=== PATIENT | male | born 1970 | race Hispanic/Latino ===

== ENCOUNTER 2017-03-11 11:54 | Inpatient (IN) | payer OTHER ==
[~2017-03-11] VITALS: Ht 177.8 cm; Wt 88.9 kg
[2017-03-11 12:22] VITALS: BP 178/106; PULSE 105; RESP 20; O2SAT 98
[2017-03-11] MEDS ORDERED: MetoCLOpramide 5 mg/mL 2 mL Inj IVPUSH PRN (12:55)
[2017-03-11] MEDS ORDERED: Ondansetron 2 mg/mL 2 mL Inj IVPUSH PRN (12:55)
[2017-03-11] MEDS ORDERED: HYDROmorphone 1 mg/mL Inj IVPUSH PRN (12:55)
[2017-03-11] MEDS: Dextrose 5% Lactated Ringer's 1,000 ML IV SCH (13:31)
[2017-03-11 13:32] LABS: BASOPHILS % (AUTO) 0.5 % (0-3); EOSINOPHILS % (AUTO) 2.2 % (0-5); MONOCYTES % (AUTO) 10.7 % (4-12); Mean Corpuscular Hemoglobin 30.4 pg (27.0-35.0); Mean Corpuscular Volume 87.4 fL (81-100); NEUTROPHILS % (AUTO) 64.8 % (40-74); Platelet Count 228 bil/L (150-400)
[2017-03-11] MEDS: Sodium Chloride LOK Flush 10 mL Syringe IVFLUSH SCH (14:09)
--- NOTE | 2017-03-11 15:54 | HP ---
[address] [address] HISTORY AND PHYSICAL PATIENT: REJI BEYER : 1970 MR#: [id number] ADMIT: 03/11/2017 JOB ID: [id number] DATE OF SERVICE: 03/11/2017 CHIEF COMPLAINT: Fevers. HISTORY OF PRESENT ILLNESS: The patient is a 46-year-old man who was admitted directly to my service from urgent care with a description of fevers, rigors, and an impacted gallstone without any laboratory abnormalities. On further detail, the scenario is much more ambiguous. The patient has presented to the [facility] at least two different times over the past week with various complaints, but his main complaint being fevers and rigors. He also has complained of nausea but that has resolved. He has not had vomiting. He has not complained of abdominal pain through any part of this illness. His main complaint today is fevers and severe headaches. Through the course of his evaluation at [facility], he had multiple rounds of labs, at which time, his white blood cell count and liver function tests have been normal the whole time. He did have a CT scan of the abdomen and pelvis on March 09 to rule out diverticulitis. His colon looked normal. It did show incidental finding of a large calcified gallstone in the gallbladder neck measuring 3.8 x 4.8 cm. There was no gallbladder wall thickening, no pericholecystic fluid. The bile in the fundus of the gallbladder had elevated Hounsfield units, generally thought to be associated with chronic obstruction of the gallbladder. The bile ducts were not dilated. The liver looked normal. The appendix was normal and no other signs of fevers were seen. Yesterday, after returning to [facility], an ultrasound of the abdomen was obtained and he was again sent home. The ultrasound showed the liver to be diffusely echogenic. The gallbladder had a probable impacted gallstone measuring 2.4 cm with diffuse gallbladder sludge, but again no gallbladder wall thickening, no biliary ductal dilation, negative sonographic Calix sign. Again, today his main complaints are fever and headache. PAST MEDICAL HISTORY: None. PAST SURGICAL HISTORY: None. MEDICATIONS: None. ALLERGIES: No known drug allergies. SOCIAL HISTORY: He works as a legislative advocate. He does not smoke cigarettes. He denies alcohol and illicit drug use. FAMILY HISTORY: Noncontributory. Specifically, no gallbladder disease. REVIEW OF SYSTEMS: A 10-point review of systems is negative except as described in history and present illness. There is no history of unplanned weight loss, no jaundice. PHYSICAL EXAMINATION: Body mass index is not recorded. Temperature 37.1, pulse 105, blood pressure 178/106. Saturation 98% on room air. General: He is resting in bed in no acute distress. HEENT: Sclerae are anicteric. Mucous membranes are moist. Neck: No lymphadenopathy. No jugular venous distention. Chest is clear. Heart: Regular rate and rhythm. No murmurs. Abdomen is completely soft, nontender, nondistended. There are no hernias. There are no palpable masses. There is no Calix's sign. Extremities: No edema. Neuro: No deficits. Psych: Affect is appropriate. LABORATORIES: White blood cell count 8.5, hematocrit 40.8, platelets 228. Differential is normal. Creatinine 0.79. Glucose 112. Bilirubin 0.6. AST 11, ALT 15, alkaline phosphatase 32, albumin 4.0. IMAGING: As described in history of present illness. ASSESSMENT AND PLAN: A 46-year-old man with one week of fevers, alternating rigors, headache, and an incidental finding of a large gallstone without evidence of cholecystitis. This is a confusing picture and I do think that based on the size of his gallstone alone, cholecystectomy might be in his future at some point, but there is no evidence as of now that he has cholecystitis. It seems unlikely that a gallbladder etiology is the underlying cause of all of his symptoms when he has absolutely no abdominal pain, has normal white count, and has normal LFTs. In addition, my service was performed before this had been completely elucidated. I have consulted the hospitalist service to initiate further workup for other sources of fevers, headache, rigors. Antibiotics are not being offered. Consideration of future cholecystectomy will continue.
[2017-03-11] MEDS ORDERED: IBUP200C11 PO (16:00)
[2017-03-11] MEDS ORDERED: ACET325C PO (16:00)
[2017-03-11] MEDS ORDERED: Lactated Ringer's 1,000 ML IV ONE (16:35)
--- NOTE | 2017-03-11 16:35 | PCM.HPANE ---
Patient Data Surgeon Admitting Provider:Du Villa MD Attending Provider:Du Villa MD Primary Care Physician:Tor Tyler MD Other Provider: Reason for Visit Cholecystitis Ht/WT & BMI Body Mass Index Allergies Coded Allergies: No Known Drug Allergies (Verified Allergy, Unknown, 03/11/17) Medications Reported Medications Ibuprofen (Advil)200 Mg [id number] Mg PO QID PRN For Pain 03/11/17 Acetaminophen 325 Mg [id number] Mg PO Q4H PRN For Pain 03/11/17 History Denture Type: None Stop/Bang Risk Assessment Category Category 1A: Patient has history of documented sleep apnea, and HAS NOT received any narcotic, sedative or anesthesia administration during this stay. Category 1B: Patient has history of documented sleep apnea, and HAS received any narcotic , sedative or anesthesia administration during this stay Category 2: Patient has SUSPECTED Obstructive Sleep Apnea, and HAS received any narcotic , sedative or anesthesia administration during this stay. Category 3: Patient has SUSPECTED Obstructive Sleep Apnea and HAS NOT received narcotic, sedative or anesthesia administration during this stay. Category 4: Outpatient in Procedural Areas with known sleep apnea or who screen positive for High Risk via the STOP/BANG questionnaire. Exam Exam Vital Signs Vital Signs Date Time Temp Pulse Resp B/P Pulse Ox O2 Delivery O2 Flow Rate FiO2 03/11/17 12:22 37.1 105 20 178/106 98 Room Air Meds/Labs/Diagnostics Admission Meds Current Medications Dextrose/Lactated Ringer's (D5 Lactated Ringer's) 1,000 ml @ 100 mls/hr Q10H IV Last administered on 03/11/17t 13:31; Start 03/11/17 at 12:53 Labs Test 03/11/17 13:20 White Blood Count 8.5th/mm3 (3.8-10.1) Red Blood Count 4.67mil/mm3 (4.40-5.80) Hemoglobin 14.2g/dL (13.8-17.2) Hematocrit 40.8% (41.0-50.0) Mean Corpuscular Volume 87.4fL (81-100) Mean Corpuscular Hemoglobin 30.4pg (27.0-35.0) Mean Corpuscular Hemoglobin Concent 34.8% (32.0-37.0) Red Cell Distribution Width 12.3% (12.3-15.4) Platelet Count 228bil/L (150-400) Neutrophils (%) (Auto) 64.8% (40-74) Lymphocytes (%) (Auto) 21.6% (14-46) Monocytes (%) (Auto) 10.7% (4-12) Eosinophils (%) (Auto) 2.2% (0-5) Basophils (%) (Auto) 0.5% (0-3) Sodium Level 135mEq/L (134-144) Potassium Level 4.1mEq/L (3.5-5.2) Chloride Level 98mEq/L (97-108) Carbon Dioxide Level 24mmol/L (18-29) Blood Urea Nitrogen 12mg/dL (6-24) Creatinine 0.79mg/dL (0.76-1.27) Estimat Glomerular Filtration Rate 113mL/min (>59) Glucose Level 112mg/dL (60-99) Calcium Level 7.9mg/dL (8.5-10.1) Total Bilirubin 0.6mg/dL (0.0-1.2) Aspartate Amino Transf (AST/SGOT) 11U/L (0-50) Alanine Aminotransferase (ALT/SGPT) 15U/L (0-44) Alkaline Phosphatase 32U/L (25-150) Total Protein 6.4g/dL (6.4-8.4) Albumin 4.0g/dL (3.4-5.0) Plan Impression Patient chart reviewed, patient interviewed and anesthestic plan with risks, benefits, and alternatives discussed, and informed consent obtained. Teodoro Mansfield MD Mar 11, 2017 16:35
[2017-03-11] MEDS: HYDROmorphone 1 mg/mL Inj IVPUSH PRN ×4 (16:41→23:22)
--- NOTE | 2017-03-11 17:21 | NUR ---
admission pt arrived from urgent care via w/c with present. Able to get into bed independently. he c/o severe HERNANDEZ, 03/10. medicated with IV dilaudid for decrease to 11/08. no c/o abd pain. Pt afebrile but he has chills. continues to ask for thermostat to be increased and warm blankets. Pt states he is unable to urinate, he states he drinks "7 bottles of water a day and I only pee like 1 bottle." bladder scanned this afternoon and only 65ml present on scan. Pt NPO since arrival, states water only this morning and last food intake yesterday. records obtained from [facility]ai in paper chart.
--- NOTE | 2017-03-11 18:47 | PCM.CHPMED ---
Subjective Date of Service: Mar 11, 2017 Provider requesting consult: Du Villa MD Primary Physician: Admitting Physician: Du Villa MD Primary Care Physician: Tor Tyler MD Attending Physician: Du Villa MD Chief Complaint: Chief Complaint: Headache, difficulty urinating, chills History of Present Illness: Patient is a 46 year old [place] speaking male originally from [place] generally healthy and without any known past medical history and on no medications who was admitted earlier directly to surgical service from urgent care with "description of fevers, rigors, and an impacted gallstone without any laboratory abnormalities." However, patient's chief complaint is a severe headache that has been ongoing for the past almost one week associated with chills, generalized malaise, and significant dysuria. He also reports occasional subjective fever, and 2 episodes of nausea and vomiting earlier in the week. He also had 2 episodes of severe acute abdominal pain which prompted the abdominal CT as outpatient which was notable for "chronically obstructed gallbladder containing a 3.8 x 4.8 impacted stone at the gallbladder neck" that lead to patient being admitted to surgery earlier today. However patient denies any ongoing abdominal pain and as noted his chief complaint is the headache, malaise and difficulty with initiating urination and then severe pain and burning when he does urinate. On further questioning he also endorses new onset of blurred vision as well as change in his sense of smell and taste over the past few days. He denies any photophobia but does complain of some neck pain. He otherwise denies any numbness, tingling, or focal weakness. He denies any recent travel (last travel to [place] was in July 2016) and denies any sick contacts. He is and denies any sexual encounters other than his . He further denies any drug use. 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 He also reports "dizziness" as well as lightheadedness even when laying down but has not lost consciousness. Review of Systems: Constitutional: Negative, except as otherwise mentioned in the history above. Ophthalmologic: Negative, except as otherwise mentioned in the history above. Cardiovascular: Negative, except as otherwise mentioned in the history above. Respiratory: Negative, except as otherwise mentioned in the history above. Gastrointestinal: Negative, except as otherwise mentioned in the history above. Genitourinary: Negative, except as otherwise mentioned in the history above. Musculoskeletal: Negative, except as otherwise mentioned in the history above. Neurological: Negative, except as otherwise mentioned in the history above. Psychiatric: Negative, except as otherwise mentioned in the history above. Hematologic/Lymphatic: Negative, except as otherwise mentioned in the history above. Allergic/Immunologic: Negative, except as otherwise mentioned in the history above. Exam Vital Signs & I/O Vital Sign- Last 8 Hours Date Time Temp Pulse Resp B/P Pulse Ox O2 Delivery O2 Flow Rate FiO2 03/11/17 12:22 37.1 105 20 178/106 98 Room Air Lab & Micro Results Laboratory Tests Test 03/11/17 13:20 White Blood Count 8.5th/mm3 (3.8-10.1) Red Blood Count 4.67mil/mm3 (4.40-5.80) Hemoglobin 14.2g/dL (13.8-17.2) Hematocrit 40.8% (41.0-50.0) Mean Corpuscular Volume 87.4fL (81-100) Mean Corpuscular Hemoglobin 30.4pg (27.0-35.0) Mean Corpuscular Hemoglobin Concent 34.8% (32.0-37.0) Red Cell Distribution Width 12.3% (12.3-15.4) Platelet Count 228bil/L (150-400) Neutrophils (%) (Auto) 64.8% (40-74) Lymphocytes (%) (Auto) 21.6% (14-46) Monocytes (%) (Auto) 10.7% (4-12) Eosinophils (%) (Auto) 2.2% (0-5) Basophils (%) (Auto) 0.5% (0-3) Sodium Level 135mEq/L (134-144) Potassium Level 4.1mEq/L (3.5-5.2) Chloride Level 98mEq/L (97-108) Carbon Dioxide Level 24mmol/L (18-29) Blood Urea Nitrogen 12mg/dL (6-24) Creatinine 0.79mg/dL (0.76-1.27) Estimat Glomerular Filtration Rate 113mL/min (>59) Glucose Level 112mg/dL (60-99) Calcium Level 7.9mg/dL (8.5-10.1) Total Bilirubin 0.6mg/dL (0.0-1.2) Aspartate Amino Transf (AST/SGOT) 11U/L (0-50) Alanine Aminotransferase (ALT/SGPT) 15U/L (0-44) Alkaline Phosphatase 32U/L (25-150) Total Protein 6.4g/dL (6.4-8.4) Albumin 4.0g/dL (3.4-5.0) Result Diagram: 03/11/17 1320 03/11/17 1320 PMH Past Medical History Denies any past medical history Hx Any Other Health Problems?: NoHx Diabetes: No Surgical History Denies any Home Medications Denies any regular home meds but has been taking Tylenol and Ibuprofen at home in past days for his ongoing symptoms. Allergies: Coded Allergies: No Known Drug Allergies (Verified Allergy, Unknown, 03/11/17) Family History Family History Both parents with diabetes Social History Hx Alcohol Use: Yes (says drinks from December- only and does not drink otherwise. His last drink was 2 weeks ago.)Hx Substance Use: NoHx Tobacco Use : No Smoking Status: Never Smoker Living Arrangement: with Family Exam Vital Signs Vital Sign - Last Date Time Temp Pulse Resp B/P Pulse Ox O2 Delivery O2 Flow Rate FiO2 03/11/17 12:22 37.1 105 20 178/106 98 Room Air General: Alert, Oriented X3, Cooperative, No Acute Distress Head: Normal Eyes: PERRLA, EOMI, Scleral Anicteric Nose: Mucous Membr Moist/[place] Mouth: Mucous Membr Moist/[place] Neck: Other (seems supple although may have mild rigidity due to headache/pain) Chest & Lungs: Chest Wall Normal, Clear to auscultation & percussion Cardiovascular: Regular Rate/Rhythm Pulses: NL carotid, radial, femoral, DP, PT Abdomen: Tender (tender at lower abdomen), Non-distended, Normoactive bowel tones, Soft Musculoskeletal: Normal Range of Motion Extremities: No cyanosis/clubbing/edma bilat Neurological: Grossly Neurologically Intact, Cranial Nerves 2-12 Intact, Normal Speech, Strength Normal 4/4 ext, Sensation Intact Lymphatic: Other Lymph Nodes (no significant lymphadenopathy) Additional Information: Psych: Calm, appropriate Lab and Diagnostics Result Diagram: 03/11/17 1320 03/11/17 1320 X-Rays, CTs and MRIs Date of Service: 03/09/17 1407 PROCEDURE: CT ABDOMEN AND PELVIS WITH CONTRAST ([id number]) IMPRESSION: Recommend surgical consultation for evaluation of what appears to be a chronically obstructed gallbladder containing a 3.8 x 4.8 impacted stone at the gallbladder neck. As noted, the bile within the gallbladder near the fundus is abnormally elevated in radiodensity at 55 Hounsfield units, indicating chronic obstruction as the likely cause. Elsewhere no source of fever found, normal appendix identified. Please note that a stone of this large size within the gallbladder neck and slowly erodes through the adjacent structures and be a source of "gallstone ileus". There is no suspicion for impending erosion from the gallbladder lumen into adjacent structures, however. Dictated by: Semaj Manrique M.D. on 03/09/2017 at 16:44 Approved by: Semaj Manrique M.D. on 03/09/2017 at 16:47 Date of Service: 03/09/17 1408 PROCEDURE: X-RAY CHEST, TWO VIEWS ([id number]) IMPRESSION: No acute pulmonary process. Dictated by: Christy Dillard M.D. on 03/09/2017 at 13:39 Approved by: Christy Dillard M.D. on 03/09/2017 at 13:39 Date of Service: 03/10/17 1259 PROCEDURE: US ABDOMEN, LIMITED ([id number]) IMPRESSION: 1. Increased hepatic echogenicity noted likely related to fatty infiltration of the liver but other sources of hepatocellular disease cannot be excluded. Recommend clinical correlation. 2. Cholelithiasis present with probable gallstone impaction within the gallbladder neck or cystic duct and there is no wall thickening or sonographic Calix sign. Dictated by: Robert White [facility] Interpreted: Lake Patel MD on 03/10/2017 at 15:31 Approved by: Lake Patel M.D. on 03/10/2017 at 20:41 Assessment & Plan Assessment 46 year male originally from [place] generally healthy and without any known past medical history and on no medications who was admitted earlier directly to surgical service from urgent care with "description of fevers, rigors, and an impacted gallstone without any laboratory abnormalities." However, patient's chief complaint is a severe headache that has been ongoing for the past almost one week associated with chills, generalized malaise, and significant dysuria. # Acute severe headache. Present on admission - Even though neuro exam is fairly non-focal he does report subjective blurry vision and change in smell and taste as well as dizziness - I will order a STAT MRI of the brain to rule out both hemorrhagic and ischemic stroke - If MRI turns out negative I will strongly recommend LP ANUP to rule out meningitis. If he does have meningitis I suspect it would be aseptic given that his symptoms have been ongoing for almost a week and he otherwise seems fairly non-toxic, afebrile, and without leukocytosis. That is why I'm holding off on initiating Abx immediately. However, should he spike a fever or have any clinical deterioration there should be little hesitation to initiate empiric Abx - Check 2 sets of blood culture - Check procalcitonin - Check PTT/PT - If above workup negative, ? if neuro symptoms due to chemical exposure from his job. Will followup # Acute dysuria present on admission. - Per nursing postvoid residual was less than 100cc - Check UA now. pt instructed to let the nurse know as soon as he has the urge to urinate # Incidental finding of a large gallstone without evidence of cholecystitis on blood work or exam - Will defer to the expertise of primary surgical team regarding need for further intervention vs followup Thank you very much for allowing us to participate in this patient's care. The hospitalist team will continue to follow this patient closely with you and will be available for any additional questions/concerns. Problems: VTE Prophylaxis: SCDs Resuscitation Status: CPR: Attempt Resuscitation (discussed and verified with patient) Time spent 65 min Gregorio Orta Mar 11, 2017 18:47
[2017-03-11 19:19] VITALS: BP 153/90; PULSE 103; RESP 18; O2SAT 96
[2017-03-11 19:39] LABS: INR 1.05 ratio
[2017-03-11 20:01] LABS: APPEARANCE,URINE CLEAR (CLEAR,HAZY); COLOR,URINE YELLOW (YELLOW); OCCULT BLOOD,URINE NEGATIVE (NEGATIVE); PH,URINE 6.5 (5.0-8.0); UROBILINOGEN,URINE NORMAL (NORMAL)
--- NOTE | 2017-03-11 21:16 | NUR ---
PAIN/NASAL CONGESTION: Pt. anxious c/o nasal congestion and pain 02/07, requesting Afrin nasal spray and pain med. also requesting apple juice, explained he is NPO for now. Paged MD to request Afrin. Given PO Tylenol as pt. already was given IV Dilaudid per previous RN, later on given IV Dilaudid and Afrin nasal spray for c/o nasal congestion. 2116 to MRI via w/c. Pt. reported pain at 10/08.
[2017-03-11 23:16] VITALS: BP 136/89; PULSE 89; RESP 18; O2SAT 96
--- NOTE | 2017-03-11 23:23 | DRSVH ---
PROCEDURE: MRI STROKE PROTOCOL ([id number]) Pre- and post-contrast brain MRI, non-contrast brain MR angiogram, pre- and postcontrast neck MR gal ogram INDICATIONS: headache, blurred vision TECHNIQUE: Brain: Noncontrast axial T1 spin echo, axial T2 fast spin echo, sagittal and axial FLAIR, coronal T2 fast spin echo, axial gradient echo, axial diffusion and ADC through the brain. After the administr ation of contrast, axial 3D VIBE of the cranial vasculature and brain. Brain MRA: Non-contrast 3-D time of flight MR angiogram, with multiple ttxyozt-rreblgsbu-xkuafqlsac (MIP) reformats performed. Neck MRA: Axial and sagittal TruFISP through the neck. Coronal dynamic MR angiogram during administ ration of contrast in the arterial and venous phases, with 3-dimenstional iszlbna-oahxglsct-iwgjqgszz n (MIP) reformats constructed from subtraction images. COMPARISON: None. FINDINGS: Image quality: Excellent. BRAIN: CSF spaces: Ventricles are normal in size and shape. Basal cisterns are patent. No extra-axial flu id collections. Brain: No intracranial hemorrhage, mass, or mass effect. Serra-white matter interface is normal. Di ffusion weighted images demonstrate no acute infarcts. Brainstem appears normal. Normal intravascul ar flow voids are present. No abnormal intracranial enhancement. Skull and face: Calvarial marrow signal is normal. Orbits appear normal. Sinuses: Sinuses and mastoids are clear. BRAIN MR ANGIOGRAM: Anterior circulation: Intracranial internal carotid arteries are normal in size and enhancement. Th e flow within the paired anterior cerebral arteries is normal and symmetric. The flow within the mid dle cerebral arteries is normal and symmetric. The anterior communicating artery is patent. No sten oses, occlusions, or aneurysms. Posterior circulation: The visualized portions of the vertebral arteries are patent and join to form a normal appearing basilar artery. The flow within the posterior cerebral arteries is normal and sy mmetric. No stenoses, occlusions, or aneurysms. NECK MR ANGIOGRAM: Carotids: Great vessels demonstrate a conventional anatomy as they arise from the aortic arch. The origins of the common carotid arteries appear patent. The calibers and courses of both common caroti d arteries are normal. The bifurcation regions appear normal bilaterally. The carotid bulbs are wid tim patent. The internal carotid arteries demonstrate normal course and caliber. Posterior circulation: The origins of the vertebral arteries appear patent. More superior portions of both vertebral arteries demonstrate normal course and caliber, and join to form a normal appearing basilar artery. Miscellaneous: Subclavian arteries appear patent. Pre-contrast images through the neck demonstrate degenerative disc disease at C3-C4 and C6-C7 with mild associated spinal canal narrowing. IMPRESSION: BRAIN MRI: 1. No evidence of infarct or other acute intracranial abnormality. BRAIN MR ANGIOGRAM: 1. No high-grade stenosis or occlusion of the central intracranial arteries. NECK MR ANGIOGRAM: 1. No high-grade stenosis or occlusion of the head and neck arteries. The carotid bulbs are widely patent. The estimate of stenosis included in the report of the imaging study was calculated using the NASCET method Dictated by: Crhis Jiménez M.D. on 03/11/2017 at 23:22 Approved by: Chris Jiménez M.D. on 03/11/2017 at 23:22
[2017-03-12] MEDS: Sodium Chloride LOK Flush 10 mL Syringe IVFLUSH SCH ×3 (00:30→16:30)
[2017-03-12] MEDS: HYDROmorphone 1 mg/mL Inj IVPUSH PRN ×6 (03:20→21:50)
[2017-03-12] MEDS: Dextrose 5% Lactated Ringer's 1,000 ML IV SCH ×2 (04:48→16:17)
--- NOTE | 2017-03-12 04:54 | NUR ---
DIFFICULTY VOIDING: Pt. states he has trouble initiating void. States "I am able to void but it is hard, it takes me a while to void and then I void only small amounts". Pt. has been up about 3 times tonight to void 250,450.400 ml bert. [facility] Pt. placed on PAINT GRINDER as he is getting Dilaudid IVP frequently for H/A. On going care. Addendum: 03/12/17 at 0501 by JOVANNA CASTILLO RN (NELLY) ADDENDUM: Pt. states his last BM was a week ago because he hasn't been eating anything.
[2017-03-12 06:46] LABS: BASOPHILS % (AUTO) 0.3 % (0-3); EOSINOPHILS % (AUTO) 1.9 % (0-5); MONOCYTES % (AUTO) 10.3 % (4-12); NEUTROPHILS % (AUTO) 63.4 % (40-74); Platelet Count 235 bil/L (150-400)
--- NOTE | 2017-03-12 08:31 | PCM.PNSURG ---
Subjective Visit Information: Reason for Visit Cholecystitis Surgery/Surgery Date Post-Op Day # Date of Admission: Mar 11, 2017 at 11:54 Hospital Day # Subjective: Still complains of headaches. WBC to 12. MR normal yesterday. No abdominal pain or tenderness. Objective Intake and Output- Last 8 Hour 03/12/17 Cumulative From/Thru 07:00 03/11/17 19:20 - 03/12/17 06:39 Intake Total 800 ml 800 ml Output Total 1100 ml 1450 ml Balance -300 ml -650 ml Intake Oral 0 ml 0 ml IV Total 800 ml 800 ml Output Urine Total 1100 ml 1450 ml # Bowel Movements 0 0 General: Alert, Oriented X3, Cooperative, No Acute Distress Abdomen: Soft, Non-tender, Non-distended Result Diagram: 03/12/1761803/12/17618 Assessment & Plan Impression 46yom with headaches and rigors and incidentally seen large gallstone. Problems: Plan I agree with my partner's assessment that this pt does not have cholecystitis. The cause for his symptoms should be thoroughly pursued, as Dr. Orta is already doing. Cholecystectomy may be considered on an elective outpatient basis. He should be seen in the general surgery clinic by a surgeon after discharge. Care will be transferred to the hospitalist team. This was discussed with Dr. Orta. VTE Prophylaxis: SCDs Resuscitation Status: CPR: Attempt Resuscitation (discussed and verified with patient) Beti Matthews MD Mar 12, 2017 08:31
--- NOTE | 2017-03-12 13:51 | PCM.PROC ---
Procedure Note Date of Service: Mar 12, 2017 Pre Procedure Diagnosis: Acute severe headache with questionable meningitis Post Procedure Diagnosis: Acute severe headache with questionable meningitis Procedure: Lumbar puncture Provider and Arborist Representative: Dr. Art Troncoso Indication for Procedure: Severe headache possibly related to meningitis Findings: No findings as attempt was unsuccessful. Procedural Analgesia: The area was numbed appropriately 5cc's of with 2% lidocaine Procedure Details: Consent was obtained from the patient. Patient was placed in a sitting position and asked to lean forward over a table which was provided. The patient' s back was prepped with betadine. The area between L4/5 was marked and then was cleaned and draped using sterile technique. Lidocaine was administered subdermally in the area between L4 and L5. Using landmarks a 22-gauge spinal needle was inserted in the L4/L5 interspace. The stylet was removed however no CSF was obtained. An attempt was made to replace the needle several times however no CSF was produced. Specimen: None Post Procedure Plan: Patient will have LP conducted under fluoroscopy. Attending Statement The patient was seen and examined together with Dr. Levy on 03/12/17 and I have added additional information to the note above. Pavan Levy DO Mar 12, 2017 13:51 Glory Cordova DO Mar 12, 2017 16:31
[2017-03-12 14:38] LABS: BASOPHILS % (AUTO) 0.2 % (0-3); EOSINOPHILS % (AUTO) 2.3 % (0-5); MONOCYTES % (AUTO) 11.1 % (4-12); Mean Corpuscular Hemoglobin 30.7 pg (27.0-35.0); Mean Corpuscular Volume 87.2 fL (81-100); NEUTROPHILS % (AUTO) 66.2 % (40-74); Platelet Count 227 bil/L (150-400)
--- NOTE | 2017-03-12 14:45 | NUR ---
NURSING DAYS 7-7 Patient underwent unsuccessful lumbar puncture today to try to differentiate viral vs bacterial meningitis. Plan now is to do radiology gilded lumber puncture. Family anxious about unknown results prognosis, care notes provided on meningitis. Pain controlled with IVP Dilaudid and ice to neck. Patient starting to c/o abdomen pain, potential gall stone. Patient sleeping quietly in bed at this time. Addendum: 03/12/17 at 1523 by SHADE FARRAR RN Patient left at 1530 to undergo RAD lumbar puncture. Droplet precautions and consent with patient. Addendum: 03/12/17 at 1828 by SHADE FARRAR RN Patient c/o abdomen pain after eating, states "this is the way it was for 4-5 days before entering hospital"
--- NOTE | 2017-03-12 16:23 | DRSVH ---
PROCEDURE: X-RAY LUMBAR PUNCTURE ([id number]) INDICATIONS: headache, neck pain, fever/chills TECHNIQUE: The indications, alternatives, benefits, risks, and complications were explained to the patient. Sakina latoya informed consent was obtained and placed in the chart. The patient was placed in a prone positi on on the fluoroscopy table, and a level was chosen for percutaneous access under fluoroscopic guidan ce. The site was prepped and draped in a sterile fashion. After local anaesthetic, a spinal needle was then used to enter the intrathecal space, with return of cerebrospinal fluid. After obtaining sufficient fluid, the needle was then withdrawn, and a bandage applied to the punctur e site. FINDINGS: Puncture level: L4-5 Needle: Spinal needle. Opening pressure: Not requested. CSF volume and description: 7 CC clear Medications: 1% lidocaine for anaesthesia. Complications: None Laboratories: As ordered by referring clinician. IMPRESSION: Successful fluoroscopically guided lumbar puncture. Dictated by: Colin Conner M.D. on 03/12/2017 at 16:22 Approved by: Colin Conner M.D. on 03/12/2017 at 16:22
[2017-03-12 16:31] VITALS: BP 135/83; PULSE 88; RESP 20; O2SAT 97
[2017-03-12] MEDS ORDERED: 0.9% Sodium Chloride 1,000 ML IV ONE (17:45)
[2017-03-12 17:47] LABS: APPEARANCE,CSF CLEAR (CLEAR); COLOR,CSF COLORLESS (COLORLESS); WHITE BLOOD CELL,CSF 625 /mm3 (0-5)
--- NOTE | 2017-03-12 17:53 | PCM.PNMED ---
Subjective Date of Service Mar 12, 2017 Subjective Reports continued headache. Ongoing dysuria. Denies any other new issues/ complaints. Exam Vital Signs Vital Sign - Last Date Time Temp Pulse Resp B/P Pulse Ox O2 Delivery O2 Flow Rate FiO2 03/12/17 16:31 36.7 88 20 135/83 97 Room Air Intake and Output 03/11/17 03/11/17 03/12/17 Cumulative From/Thru 15:00 23:00 07:00 03/11/17 19:20 - 03/12/17 06:39 Intake Total 0 ml 800 ml 800 ml Output Total 350 ml 1100 ml 1450 ml Balance -350 ml -300 ml -650 ml Intake Oral 0 ml 0 ml 0 ml IV Total 800 ml 800 ml Output Urine Total 350 ml 1100 ml 1450 ml # Bowel Movements 0 0 Exam General: Alert, Oriented x 3, Cooperative, No Acute Distress Head: Normal Eyes: PERRLA, EOMI, Scleral Anicteric Nose: Mucous Membr Moist/[place] Mouth: Mucous Membr Moist/[place] Neck: Other (seems supple although may have mild rigidity due to headache/pain) Chest & Lungs: Chest Wall Normal, Clear to auscultation bilat Cardiovascular: Regular Rate/Rhythm Pulses: NL DP, PT Abdomen: Tender (tender at lower abdomen), Non-distended, Normoactive bowel tones, Soft Musculoskeletal: Normal Range of Motion Extremities: No cyanosis/clubbing/edema bilat Neurological: Grossly Neurologically Intact, Cranial Nerves 2-12 Intact, Normal Speech, Strength Normal 4/4 ext Psych: Calm, appropriate IVs and Medications Medications Reviewed: Medications were reviewed in detail Lab and Diagnostics Result Diagram: 03/12/17 1413 03/12/17 0619 X-Rays, CTs and MRIs Date of Service: 03/11/17 1833 PROCEDURE: MRI STROKE PROTOCOL ([id number]) Pre- and post-contrast brain MRI, non-contrast brain MR angiogram, pre- and postcontrast neck MR angiogram IMPRESSION: BRAIN MRI: 1. No evidence of infarct or other acute intracranial abnormality. BRAIN MR ANGIOGRAM: 1. No high-grade stenosis or occlusion of the central intracranial arteries. NECK MR ANGIOGRAM: 1. No high-grade stenosis or occlusion of the head and neck arteries. The carotid bulbs are widely patent. The estimate of stenosis included in the report of the imaging study was calculated using the NASCET method Dictated by: Chris Jiménez M.D. on 03/11/2017 at 23:22 Approved by: Chris Jiménez M.D. on 03/11/2017 at 23:22 Additional Diagnostics Date of Service: 03/12/17 1324 PROCEDURE: X-RAY LUMBAR PUNCTURE ([id number]) IMPRESSION: Successful fluoroscopically guided lumbar puncture. Dictated by: Colin Conner M.D. on 03/12/2017 at 16:22 Approved by: Colin Conner M.D. on 03/12/2017 at 16:22 Assessment & Plan 46 year male originally from [place] generally healthy and without any known past medical history and on no medications who was admitted earlier directly to surgical service from urgent care with "description of fevers, rigors, and an impacted gallstone without any laboratory abnormalities." However, patient's chief complaint is a severe headache that has been ongoing for the past almost one week associated with chills, generalized malaise, and significant dysuria. # Acute severe headache. Present on admission - Acute CVA/Stroke ruled out with brain MRI on 03/11/17 - Post lumbar puncture procedure on 03/12/17 by interventional radiology - Followup CSF analysis to rule out meningitis - Followup pending cultures # Acute dysuria and hesitancy present on admission. - UA is negative # Incidental finding of a large gallstone without evidence of cholecystitis on blood work or exam - Further followup as outpatient per surgery team recommendation # Acute abdominal pain. Lower abdomen. Present on admission. Ongoing - ? if due to bladder dysfunction - Consider urology consult if persist by tomorrow. Dispo: 2-3 days VTE Prophylaxis: SCDs VTE Mechanical Devices: Intermittant Pneumatic CD Resuscitation Status: CPR: Attempt Resuscitation (discussed and verified with patient) Gregorio Orta Mar 12, 2017 17:53
[2017-03-12] MEDS: Vancomycin Dose per Pharmacist XX SCH (19:30)
[2017-03-12] MEDS: cefTRIAXone Inj 2,000 MG in Dextrose 5% Minibag Plus 50 ML IV SCH (20:05)
[2017-03-12 20:09] VITALS: BP 148/88; PULSE 91; RESP 20; O2SAT 96
[2017-03-12] MEDS ORDERED: Vancomycin Inj 2,000 MG in 0.9% Sodium Chloride 500 ML IV ONE (22:00)
[2017-03-12] MEDS: ACYCLOVIR IV SCH (22:58)
[2017-03-12] MEDS: SODIUM CHLORIDE 0.9% IV SCH (22:58)
--- NOTE | 2017-03-12 23:06 | PCM.CONPHA ---
Assessment/Plan Assessment/Plan Pharmacy Kinetic Dosing Vancomycin Indication: R/O MENINGITIS Vanc goal trough: 15-20 mcg/mL Pt wt: 91.9 kg Other ABX: ACYCLOVIR, CEFTRIAXONE Cultures: Blood NO GROWTH, CSF PENDING SCr: 146 mg/dL Assessment/Plan: - Loading dose of Vancomycin 2000mg given -Will continue Vancomycin 1250 mg Q6H with trough scheduled prior to 4th dose on 03/13/17 @1530. Pharmacy appreciates consult and will continue to monitor. Dina Ruff PharmD Mar 12, 2017 23:06
[2017-03-13] MEDS: Sodium Chloride LOK Flush 10 mL Syringe IVFLUSH SCH ×3 (00:04→18:25)
[2017-03-13] MEDS: HYDROmorphone 1 mg/mL Inj IVPUSH PRN ×4 (02:29→19:44)
[2017-03-13] MEDS: Vancomycin Inj 1,250 MG in 0.9% Sodium Chloride 250 ML IV SCH ×2 (02:33→10:46)
--- NOTE | 2017-03-13 03:29 | NUR ---
Pain Patient c/o 8-9/10 pain at start of shift, pain medication ineffective. Hospitalist paged and additional pain med ordered. Pain now tolerable. Patient able to make needs known. Tolerating ABX well, no noted adverse side effects.
[2017-03-13 05:45] VITALS: BP 138/67; PULSE 87; RESP 18; O2SAT 97
[2017-03-13] MEDS: SODIUM CHLORIDE 0.9% IV SCH ×3 (06:26→22:43)
[2017-03-13] MEDS: ACYCLOVIR IV SCH ×3 (06:26→22:43)
[2017-03-13 08:17] VITALS: BP 121/74; PULSE 87; RESP 18; O2SAT 97
[2017-03-13] MEDS: Vancomycin Dose per Pharmacist XX SCH (08:30)
--- NOTE | 2017-03-13 09:30 | PCM.PNSURG ---
Subjective Visit Information: Reason for Visit Cholecystitis Surgery/Surgery Date Post-Op Day # Date of Admission: Mar 11, 2017 at 11:54 Hospital Day # Subjective: Pt complained of diffuse abdominal pain after clear liquids yesterday, worse in the lower abdomen. His last BM was 8 days ago. Additional history was obtained describing several days of postprandial abdominal pain leading up to this admission which caused him to stop eating and resolved his pain. Notably, his lumbar puncture revealed a protein of 119 with normal being 15-40. White blood cell count is 625, with normal being 0-5. Glucose is 48, with normal being 50-75. He is now being treated for meningitis with 2 antibiotics and an antiviral agent. Objective Vital Sign- Last 8 Hours Date Time Temp Pulse Resp B/P Pulse Ox O2 Delivery O2 Flow Rate FiO2 03/13/17 08: 37.1 87 18 121/74 97 Room Air 03/13/17 05:45 36.9 87 18 138/67 97 Room Air Intake and Output- Last 8 Hour 03/13/17 Cumulative From/Thru 07:00 03/11/17 19:20 - 03/13/17 06:30 Intake Total 2418 ml 4968 ml Output Total 850 ml 3800 ml Balance 1568 ml 1168 ml Intake Oral 400 ml 1300 ml IV Total 2018 ml 3668 ml Output Urine Total 850 ml 3800 ml # Bowel Movements 0 0 General: Alert, Oriented X3, Cooperative, No Acute Distress Abdomen: Soft, Other (moderately tender to palpation in the left lower quadrant. Minimally tender to palpation of the right lower quadrant. Nontender in the right upper quadrant and left upper quadrant.) Result Diagram: 03/12/17 1413 03/13/17 0600 Assessment & Plan Impression 46-year-old man with meningitis and postprandial lower abdominal pain who has not had a bowel movement in 8 days. Problems: Plan Agree with treatment for meningitis. I recommend laxative and suppository to treat constipation. Last night I had recommended a CT scan of the abdomen and pelvis, however, based on his overall clinical picture including predominance of tenderness in the lower quadrants, his constipation should be treated and abdominal pain reassessed prior to proceeding with this, so the CT scan order has been canceled. I continue to agree that his large gallstone is an incidental finding. VTE Prophylaxis: SCDs Resuscitation Status: CPR: Attempt Resuscitation (discussed and verified with patient) Beti Matthews MD Mar 13, 2017 09:30
[2017-03-13] MEDS: Polyethylene Glycol (PEG) 17 Gm Powder PO SCH (10:44)
[2017-03-13 13:00] VITALS: BP 163/104; PULSE 104; RESP 18; O2SAT 100
--- NOTE | 2017-03-13 13:10 | NUR ---
Suppository Pt refusing suppository ordered this morning; PO Miralax given, no BM yet today. Pt c/o not being able to sleep last night would like something to sleep today, RN explained she would request for tonight from MD and group all care and activities so pt can sleep between, pt and family member in agreement. Care ongoing.
[2017-03-13 14:04] VITALS: BP 136/73; PULSE 95; RESP 18; O2SAT 97
[2017-03-13] MEDS ORDERED: Vancomycin Serum Trough XX ONE (15:30)
--- NOTE | 2017-03-13 16:28 | PCM.PNMED ---
Subjective Date of Service Mar 13, 2017 Subjective Reports continued headache. Ongoing dysuria (but improving). Denies any other new issues/complaints. Exam Vital Signs Vital Sign - Last Date Time Temp Pulse Resp B/P Pulse Ox O2 Delivery O2 Flow Rate FiO2 03/13/17 14:04 95 18 136/73 97 Room Air 03/13/17 13:00 36.8 Intake and Output 03/12/17 03/12/17 03/13/17 Cumulative From/Thru 15:00 23:00 07:00 03/11/17 19:20 - 03/13/17 06:30 Intake Total 1750 ml 2418 ml 4968 ml Output Total 1500 ml 850 ml 3800 ml Balance 250 ml 1568 ml 1168 ml Intake Oral 900 ml 400 ml 1300 ml IV Total 850 ml 2018 ml 3668 ml Output Urine Total 1500 ml 850 ml 3800 ml # Bowel Movements 0 0 Exam General: Alert, Oriented x 3, Cooperative, No Acute Distress Head: Normal Eyes: PERRLA, EOMI, Scleral Anicteric Nose: Mucous Membr Moist/[place] Mouth: Mucous Membr Moist/[place] Neck: Other (seems supple although may have mild rigidity due to headache/pain) Chest & Lungs: Chest Wall Normal, Clear to auscultation bilat Cardiovascular: Regular Rate/Rhythm Pulses: NL DP, PT Abdomen: Tender (tender at lower abdomen), Non-distended, Normoactive bowel tones, Soft Musculoskeletal: Normal Range of Motion Extremities: No cyanosis/clubbing/edema bilat Neurological: Grossly Neurologically Intact, Normal Speech, Strength Normal 4/ 4 ext Psych: Calm, appropriate IVs and Medications Medications Reviewed: Medications were reviewed in detail Lab and Diagnostics Result Diagram: 03/12/17 1413 03/13/17 0600 X-Rays, CTs and MRIs Date of Service: 03/11/17 1833 PROCEDURE: MRI STROKE PROTOCOL ([id number]) Pre- and post-contrast brain MRI, non-contrast brain MR angiogram, pre- and postcontrast neck MR angiogram IMPRESSION: BRAIN MRI: 1. No evidence of infarct or other acute intracranial abnormality. BRAIN MR ANGIOGRAM: 1. No high-grade stenosis or occlusion of the central intracranial arteries. NECK MR ANGIOGRAM: 1. No high-grade stenosis or occlusion of the head and neck arteries. The carotid bulbs are widely patent. The estimate of stenosis included in the report of the imaging study was calculated using the NASCET method Dictated by: Chris Jiménez M.D. on 03/11/2017 at 23:22 Approved by: Chris Jiménez M.D. on 03/11/2017 at 23:22 Additional Diagnostics Date of Service: 03/12/17 1324 PROCEDURE: X-RAY LUMBAR PUNCTURE ([id number]) IMPRESSION: Successful fluoroscopically guided lumbar puncture. Dictated by: Colin Conner M.D. on 03/12/2017 at 16:22 Approved by: Colin Conner M.D. on 03/12/2017 at 16:22 Assessment & Plan 46 year male originally from [place] generally healthy and without any known past medical history and on no medications who was admitted earlier directly to surgical service from urgent care with "description of fevers, rigors, and an impacted gallstone without any laboratory abnormalities." However, patient's chief complaint is a severe headache that has been ongoing for the past almost one week associated with chills, generalized malaise, and significant dysuria. # Acute severe headache due to acute meningitis. Present on admission - Acute CVA/Stroke ruled out with brain MRI on 03/11/17 - Post lumbar puncture procedure on 03/12/17 by interventional radiology - CSF suggestive of meningitis. - viral PCR negative - Followup culture/gram stain - Continue with empiric Ceftriaxone + Vanco + IV Acyclovir (started on ) - Followup pending cultures - ID consult in AM and will consider narrowing down Abx treatment tomorrow after discussion with ID - Continue supportive care including IV Morphine prn # Acute dysuria and hesitancy present on admission. - UA is negative - ? if due to underlying constipation - If persist after having BM consider urology consult. # Incidental finding of a large gallstone without evidence of cholecystitis on blood work or exam - Further followup as outpatient per surgery team recommendation # Acute abdominal pain. Lower abdomen. Present on admission. Ongoing - ? if due to bladder dysfunction vs constipation - Laxative and suppository per surgery recs # Acute hyponatremia, not present on admission. - Improving with IVF. - Followup Dispo: 2-3 days VTE Prophylaxis: SCDs VTE Mechanical Devices: Intermittant Pneumatic CD Resuscitation Status: CPR: Attempt Resuscitation (discussed and verified with patient) Gregorio Orta Mar 13, 2017 16:28
[2017-03-13 16:45] VITALS: BP 150/92; PULSE 88; RESP 18; O2SAT 98
--- NOTE | 2017-03-13 17:19 | NUR ---
Pain/IV Dilaudid Per pt Headache today 7/10 most of day, PO Tylenol ineffective; pt refusing IV Morphine. 1mg IV Dilaudid given for pain and per pt pain reduced to 2/10 from previous; effective. Will continue to monitor with frequent rounds.
--- NOTE | 2017-03-13 17:31 | NUR ---
Social Work: Screening/Multidisciplinary Rounds D: EMR reviewed. Pt is a 46 y/o male admitted [place] with a readmit risk score of 0 for cholecystitis per H&P. Pt's insurance [employer] and PCP Tor Tyler MD. Pt's NOK is spouse Dali Newby [phone]. Pt lives at home with his spouse in [place]. Pt discussed in multidisciplinary rounds pt anticipated to remain hospitalized for 3-5 more days pending ID consult - meningitis. SW discussed potential SW discharge needs. No SW needs identified, no MD orders at this time. A: Pt who is independent at baseline and currently capable of self-care, per multidisciplinary rounds P: Pt anticipated to discharge home with spouse via POV when medically stable. SW discussed potential SW discharge needs. No SW needs identified, no MD orders at this time. RENITA Lawson
[2017-03-13] MEDS ORDERED: 0.9% Sodium Chloride 1,000 ML IV ONE (17:55)
--- NOTE | 2017-03-13 19:25 | PCM.PHAPRO ---
Progress Date of Service: Mar 13, 2017 Headache, difficulty urinating, chills VANCOMYCIN MANAGEMENT A\ 46 YO M ADMITTED FOR R/O MENINGITIS SCR=0.63 CRCL=>100 WBC=10.1 VANCOMYCIN TROUGH =11.9 GOAL =15-20 P\ WILL INCREASE VANCOMYCIN 1500MG IV Q6H AND WILL CHECK A VANCOMYCIN TROUGH BEFORE THE 4TH DOSE 03/14 1330 Cesar Rodriguez [facility] Mar 13, 2017 19:25
[2017-03-13] MEDS: Vancomycin Inj 1,500 MG in 0.9% Sodium Chloride 500 ML IV SCH (19:44)
[2017-03-13 20:25] VITALS: BP 147/81; PULSE 91; RESP 20; O2SAT 95
[2017-03-13] MEDS: cefTRIAXone Inj 2,000 MG in Dextrose 5% Minibag Plus 50 ML IV SCH (21:57)
[2017-03-14] MEDS: Sodium Chloride LOK Flush 10 mL Syringe IVFLUSH SCH ×3 (00:30→15:12)
[2017-03-14] MEDS: Vancomycin Inj 1,500 MG in 0.9% Sodium Chloride 500 ML IV SCH ×2 (02:01→08:46)
--- NOTE | 2017-03-14 04:49 | NUR ---
Headache Continues to c/o persistent headache which worsens when he is upright, encouraged to stay flat but pt stands to void. Pain managed with PO Tylenol and IV Dilaudid. Voiding large volumes, IV antibiotics infusing per MAR. Hourly rounding ongoing.
[2017-03-14 05:15] VITALS: BP 136/89; PULSE 84; RESP 22; O2SAT 96
[2017-03-14] MEDS: ACYCLOVIR IV SCH ×2 (06:21→15:13)
[2017-03-14] MEDS: SODIUM CHLORIDE 0.9% IV SCH ×2 (06:21→15:13)
[2017-03-14] MEDS: Vancomycin Dose per Pharmacist XX SCH (08:30)
[2017-03-14] MEDS: Polyethylene Glycol (PEG) 17 Gm Powder PO SCH (08:45)
[2017-03-14 10:24] VITALS: BP 129/85; PULSE 80; RESP 20; O2SAT 98
[2017-03-14] MEDS: HYDROmorphone 1 mg/mL Inj IVPUSH PRN ×2 (12:53→22:00)
[2017-03-14] MEDS ORDERED: Vancomycin Serum Trough XX ONE (13:30)
--- NOTE | 2017-03-14 15:57 | PCM.PNMED ---
Subjective Date of Service Mar 14, 2017 Subjective Says headache now almost completely resolved. Denies any upper abdominal pain after eating today and reports lower abdominal pain much improved. Still now BM. Says urinary hesitancy resolved but now with urinary frequency and still with some burning with urination. Still having some blurred vision although seems improving. Denies any other new issues/complaints Exam Vital Signs Vital Sign - Last Date Time Temp Pulse Resp B/P Pulse Ox O2 Delivery O2 Flow Rate FiO2 03/14/17 10:24 36.2 80 20 129/85 98 Room Air Intake and Output 03/13/17 03/13/17 03/14/17 Cumulative From/Thru 15:00 23:00 07:00 03/11/17 19:20 - 03/14/17 06:20 Intake Total 2200 ml 1828 ml 8996 ml Output Total 4000 ml 7800 ml Balance -1800 ml 1828 ml 1196 ml Intake Oral 1300 ml 2600 ml IV Total 900 ml 1828 ml 6396 ml Output Urine Total 4000 ml 7800 ml # Bowel Movements 0 0 Exam General: Alert, Oriented x 3, Cooperative, No Acute Distress Head: Normal Eyes: PERRLA, EOMI, Scleral Anicteric Nose: Mucous Membr Moist/[place] Mouth: Mucous Membr Moist/[place] Neck: Supple with full ROM Chest & Lungs: Chest Wall Normal, Clear to auscultation bilat Cardiovascular: Regular Rate/Rhythm Pulses: NL DP, PT Abdomen: Tender (tender at lower abdomen), Non-distended, Normoactive bowel tones, Soft Musculoskeletal: Normal Range of Motion Extremities: No cyanosis/clubbing/edema bilat Neurological: Grossly Neurologically Intact, Normal Speech, Strength Normal 4/ 4 ext Psych: Calm, appropriate Lab and Diagnostics Result Diagram: 03/12/17 1413 03/14/17 0535 X-Rays, CTs and MRIs Date of Service: 03/11/17 1833 PROCEDURE: MRI STROKE PROTOCOL ([id number]) Pre- and post-contrast brain MRI, non-contrast brain MR angiogram, pre- and postcontrast neck MR angiogram IMPRESSION: BRAIN MRI: 1. No evidence of infarct or other acute intracranial abnormality. BRAIN MR ANGIOGRAM: 1. No high-grade stenosis or occlusion of the central intracranial arteries. NECK MR ANGIOGRAM: 1. No high-grade stenosis or occlusion of the head and neck arteries. The carotid bulbs are widely patent. The estimate of stenosis included in the report of the imaging study was calculated using the NASCET method Dictated by: Chris Jiménez M.D. on 03/11/2017 at 23:22 Approved by: Chris Jiménez M.D. on 03/11/2017 at 23:22 Additional Diagnostics Date of Service: 03/12/17 1324 PROCEDURE: X-RAY LUMBAR PUNCTURE ([id number]) IMPRESSION: Successful fluoroscopically guided lumbar puncture. Dictated by: Colin Conner M.D. on 03/12/2017 at 16:22 Approved by: Colin Conner M.D. on 03/12/2017 at 16:22 Assessment & Plan 46 year male originally from [place] generally healthy and without any known past medical history and on no medications who was admitted earlier directly to surgical service from urgent care with "description of fevers, rigors, and an impacted gallstone without any laboratory abnormalities." However, patient's chief complaint is a severe headache that has been ongoing for the past almost one week associated with chills, generalized malaise, and significant dysuria. # Acute severe headache due to acute meningitis. Present on admission. Clinically seems to be improving - Acute CVA/Stroke ruled out with brain MRI on 03/11/17 - Post lumbar puncture procedure on 03/12/17 by interventional radiology - CSF suggestive of meningitis. - viral PCR negative - Followup culture/gram stain negative so far - Continue with empiric Ceftriaxone + Vanco + IV Acyclovir (started on ) - Followup pending cultures - ID consulted today. Will followup with recs - Continue supportive care including IV Morphine prn # Acute dysuria and hesitancy present on admission. - UA is negative - ? if due to underlying constipation - If persist after having BM consider urology consult. # Incidental finding of a large gallstone without evidence of cholecystitis on blood work or exam - Further followup as outpatient per surgery team recommendation - Surgery signed off on 03/14 and recommends followup as outpatient after acute meningitis resolved # Acute abdominal pain. Lower abdomen. Present on admission. Ongoing - ? if due to bladder dysfunction vs constipation - Laxative and stool softeners. patient refusing suppository that was ordered by surgery # Acute hyponatremia, not present on admission. - Improving with IVF. - Followup Dispo: 1-2 days VTE Prophylaxis: SCDs VTE Mechanical Devices: Intermittant Pneumatic CD Resuscitation Status: CPR: Attempt Resuscitation (discussed and verified with patient) Gregorio Orta Mar 14, 2017 15:57
[2017-03-14] MEDS ORDERED: Magnesium Hydroxide 10 mL Oral Concentration PO ONE (16:00)
--- NOTE | 2017-03-14 18:11 | NUR ---
ACTIVITY Tylenol PO and Dilaudid IV has been helpful for patients complaints of headache. Tolerating liquids PO and his diet well. Denies nausea. No emesis noted. Denies SOB. Patient has been ambulating with SBA in the room and in the hallway. Droplet precautions in place. He continues to be constipated. Miralax, Senna and MOM administered. No BM at this time.
--- NOTE | 2017-03-14 19:34 | DRSVH ---
PROCEDURE: X-RAY CHEST, TWO VIEWS ([id number]) INDICATIONS: tb TECHNIQUE: 2 views of the chest were acquired. COMPARISON: [facility], CR, XR CHEST 2VW, 03/09/2017, 14:22. FINDINGS: Surgical changes and devices: None. Lungs and pleura: No pleural effusions or pneumothorax. Lungs are clear. Mediastinum: Mediastinal contours are normal. Heart size is normal. Bones and chest wall: No suspicious bony abnormalities. Soft tissues appear unremarkable. IMPRESSION: No acute cardiopulmonary disease process. Dictated by: Justine Gandara MD, PhD on 03/14/2017 at 19:32 Approved by: Justine Gandara MD, PhD on 03/14/2017 at 19:32
[2017-03-14 20:16] VITALS: BP 146/91; PULSE 84; RESP 16; O2SAT 94
[2017-03-14] MEDS: cefTRIAXone Inj 2,000 MG in Dextrose 5% Minibag Plus 50 ML IV SCH (21:05)
--- NOTE | 2017-03-14 23:10 | CONS ---
[address] [address] CONSULTATION REPORT PATIENT: REJI BEYER : 1970 MR#: [id number] ADMIT: 03/11/2017 JOB ID: [id number] DATE OF SERVICE: 03/14/[address] Orta for this timely consult. REASON FOR CONSULT: Meningitis. HISTORY OF PRESENT ILLNESS: The patient is a totally healthy, 46-year-old gentleman who works in [employer] here in [facility]. He emigrated from [place] about 20 years ago and journeys back to [place] every year around the [place] holidays for a week or two but has not lived there in a couple of decades. When he goes back to the [facility] near [facility], he flies rather than drives. He lives at home with his and children and is usually in excellent health. He reports that he developed fevers, chills, sweats and a terrible headache about nine days ago. He traces the onset exactly back to March 04 and he wonders if it could be due to a [place] restaurant he ate at on that day. In association with this severe headache, there has been some nausea and vomiting but that subsided. He also reported some abdominal pain, which actually led to his admission and a CT scan of the abdomen which just showed a large gallstone chronically impacted in the gallbladder neck, but no other evidence of abdominal inflammation or pathology was found. He notes he may have had a bit of a stiff neck in association with this headache, but it is all largely rapidly improving at this point. He reports no significant unusual exposures at work and specifically no mosquito or tick bites. He has had no unusual exposures to any drugs nor any toxins that he is aware of. No one around him has suffered similar to this and he and his do not have any animals at home. He does not eat queso fresco, the fresh cheese imported from [place] which is sometimes contaminated with listeria or brucellosis. The patient notes since admission he is way better, and he wonders if he can go home. PAST MEDICAL HISTORY: Reportedly completely negative. SOCIAL HISTORY: The patient drinks beer one day a week. He does not drink to excess, he says, and he does not smoke cigarettes or inject drugs. FAMILY HISTORY: Positive for both parents having diabetes. There is no family history of tuberculosis. REVIEW OF SYSTEMS: Was done. At this point, the patient has a fading headache. He states he did have some photophobia but is getting better. He did have some minimal neck pain and stiffness and that is getting better. He has no pain in his spine at this point, no trouble ambulating, and no bowel or bladder issues. He has no sore throat or trouble swallowing. No problems with his vision per se. No cough, shortness of breath, chest pain, nausea, vomiting, or diarrhea. No genitourinary symptoms and no skin rash. Remainder of the review of systems is negative. PHYSICAL EXAMINATION: Physical exam reveals an afebrile gentleman. Note that he has been afebrile since admission. Temp 36.2, pulse 80, respiratory rate 20, blood pressure 129/85, he is saturating well on room air. He has absolutely no acute distress. The patient appears to be in great physical condition overall. He is awake, alert, insightful. We communicated some in Kiswahili, some in Malaysian and a lead burner came and helped. His neck is supple. His head is without trauma. Eyes without conjunctivitis, scleral icterus or any other abnormality. Nose normal. Oral cavity: No thrush or hairy leukoplakia. His lungs are clear to auscultation. Cardiac tones: Regular rate and rhythm. The spine was carefully palpated. There is no significant tenderness. Abdomen without hepatosplenomegaly. There is no suprapubic fullness and he has no Chamberlain catheter. He has excellent strength in his legs and arms, intact sensation. No synovitis. No skin rash. No neurologic abnormalities and basically just a normal physical. LABORATORIES: Include a white count which was 8000 when he came in. It bumped to 12 and it is now back to 10. Completely normal diff. Creatinine 0.74. Procalcitonin 0 on a single measurement. Urinalysis without white cells. Micro studies include her cerebrospinal fluid notable for 625 white cells. Basically all lymphocytes. Protein and spinal fluid 119. Glucose 48. Cultures of spinal fluid are negative at 72 hours. Multiplex PCR spinal fluid completely negative, interestingly, which includes negative for crypto, the herpes viruses, and standard bacterial pathogens. IMAGING: Includes an MRI scan of the brain which showed no notable intracranial abnormality. IMPRESSION: This is a case of a gentleman with an impressive aseptic meningitis. Most aseptic meningitis is viral, but not all of it. In this case we do not know as of yet. Our multiplex PCR panel looks for some common causes, but obviously not all of them. At this point, we are awaiting the final report on the CSF cultures, but I strongly suspect that will be negative. The differential diagnosis here is extremely broad and includes such possibilities as tuberculosis, LCM virus, West Nile fever, human immunodeficiency virus, mono, syphilis, brucellosis, crypto and central nervous system vasculitis. The patient, at this point, looks entirely benign, and there is certainly no evidence to suggest encephalitis or progressive bacterial or fungal meningitis. RECOMMENDATIONS: 1. I have discontinued acyclovir as there is no evidence for herpes simplex encephalitis, and I have discontinued Vanco as there is certainly no reason to be concerned about MRSA. 2. Will stop the isolation. 3. We can leave him on ceftriaxone overnight, but I suspect it is not necessary. 4. Additional diagnostic studies ordered include mycoplasma pneumoniae, PCR on spinal fluid, TB PCR on spinal fluid, QuantiFERON Gold, chest x-ray, mono spot, RPR, HIV and serum cryptoantigen. 5. This is a difficult case in that we may not have an answer which is often a problem. I see no evidence for a parameningeal focus or any of the typical causes of aseptic meningitis beyond enterovirus and HSV and we may ultimately just have to decide to send the patient home with close followup. But, for now, let us watch him overnight out of isolation with the pending tests as indicated. Thank you very much for this consult.
[2017-03-15] MEDS: Sodium Chloride LOK Flush 10 mL Syringe IVFLUSH SCH ×2 (00:28→09:45)
[2017-03-15 05:41] VITALS: BP 130/87; PULSE 80; RESP 16; O2SAT 95
[2017-03-15] MEDS: HYDROmorphone 1 mg/mL Inj IVPUSH PRN ×2 (05:58→09:50)
[2017-03-15 06:08] LABS: BASOPHILS % (AUTO) 0.4 % (0-3); MONOCYTES % (AUTO) 9.2 % (4-12); Mean Corpuscular Hemoglobin 30.6 pg (27.0-35.0); Mean Corpuscular Volume 86.7 fL (81-100); NEUTROPHILS % (AUTO) 63.3 % (40-74); Platelet Count 282 bil/L (150-400)
--- NOTE | 2017-03-15 06:49 | NUR ---
Pain continues with c/o headache and neck discomfort overnight. IV Dilaudid given and effective.
[2017-03-15 09:15] VITALS: BP 131/79; PULSE 98; RESP 17; O2SAT 96
[2017-03-15] MEDS: Polyethylene Glycol (PEG) 17 Gm Powder PO SCH (09:45)
--- NOTE | 2017-03-15 10:41 | PROG NOTE ---
[address] [address] PROGRESS NOTE PATIENT: REJI BEYER : 1970 MR#: [id number] ADMIT: 03/11/2017 JOB ID: [id number] INFECTIOUS DISEASE FOLLOWUP DATE: 03/15/2017 REASON FOR FOLLOWUP: Meningitis. INTERVAL HISTORY: The patient reports he feels quite well and wants to go home. He denies any fevers, chills, sweats, headache, backache, or neck ache. He is having no respiratory or GI symptoms. Oddly, the patient reports that he has had some trouble urinating since he was admitted to the hospital. He reports he has to push out his urine. He also notes that there was initial burning with urination, but this resolves as the urinating continues. This has never been a problem before. He has no pelvic or back pain now. PHYSICAL EXAMINATION: Reveals a completely healthy-looking gentleman. He is afebrile. Temperature 37.1, pulse 98, respiratory rate 17, blood pressure 131/79, saturating well on room air. No acute distress. His oral cavity is entirely unremarkable. His neck is supple. There is no tenderness over his cervical, thoracic, or lumbar spine. I carefully palpated each spinous process. His lungs are clear. Cardiac tones without murmur. Abdomen benign. He has no suprapubic fullness. He has excellent strength and denies any bowel or bladder complaint. LABORATORIES: Include a white count 7500, totally normal diff. Creatinine 0.77. Note that he is mildly hyponatremic and this is unexplained with the current sodium of 133. Liver function tests are normal. Glucose 110. Procalcitonin zero. Urinalysis without pyuria. RPR has come back negative. Monospot negative. HIV negative. Still pending are West Nile virus serologies, cryptococcal antigen, and QuantiFERON Gold. LCM viral antibody is also pending. Recall that his cerebral spinal fluid was impressive 625 white cells basically all neutrophils with 3% eosinophils interestingly. His CSF protein 119. No significant peripheral eosinophilia was noted. Micro studies include negative cultures of cerebrospinal fluid which are now entering their fifth day of incubation. The CSF PCR panel was negative. Chest x-ray was completely normal. MRI scan normal. IMPRESSION: By definition, this patient has a septic meningitis, but we unfortunately have no idea what is the cause of this process. He appears completely benign and there is certainly nothing here to suggest untreated or inadequately treated bacterial meningitis, but we still do not have a clear-cut answer, and I remain concerned about many of the items mentioned in my initial consult yesterday. Also concerned with 3% eosinophils and cerebrospinal fluid would be coccidiomycosis, and I have ordered a serology for that to be done today. RECOMMENDATIONS: 1. The patient could reasonably be discharged today given that he is completely stable, but he will need close followup as we have not explained the nature of this aseptic meningitis. It is likely to be a virus, but we need to follow him to make sure all of our other tests are negative and that he has a benign course. 2. If discharged, the patient should see me in my clinic March 23, and I have given him the phone number and appointment information. 3. A cocci antibody will be added today, just so I will have that available when I see him in followup. Cocci is unlikely, as the patient goes back and forth from [place] to [facility] by air and claims he has not spent any time in the cocci endemic zones, but it is difficult to exclude single exposure perhaps during transit at some point. 4. A bladder scan will be ordered on the off chance that he has a postvoid residual but I think this is unlikely. If that were to be the case, would indicate possibly some viral process involving the cord as well as giving him the meningitis. 5. I will be out of town the next six days and returning to work on the . I can be reached about this or any other patient by telephone or text during that six-day interval if need be.
[2017-03-15 11:13] LABS: Cryptococcal Ag Negative (Negative)
[2017-03-15 11:23] LABS: APPEARANCE,URINE CLEAR (CLEAR,HAZY); COLOR,URINE YELLOW (YELLOW); OCCULT BLOOD,URINE NEGATIVE (NEGATIVE)
--- NOTE | 2017-03-15 13:17 | PCM.DIMED ---
Discharge Instructions Date of Service Mar 15, 2017 Dates of Hospitalization Mar 11, 2017 at 11:54 Discharge Diagnosis Discharge Diagnosis # acute aseptic meningitis. Present on admission. Clinically seems to be improving # Acute dysuria urinary retention and hesitancy due to suspected BPH ,present on admission. # Incidental finding of a large gallstone without evidence of cholecystitis on blood work or exam # Acute hyponatremia, not present on admission. Diet Discharge Diet: Low fat, Low Sodium Activity Discharge Activity: Limited until seen by PCP Call your provider Call your provider for: Fever or Chills, Shortness of breath, Bleeding, Chest pain, Vomitting, Excessive diarrhea, Weakness (unilateral) Patient Instructions Patient Instructions You were hospitalized due to meningitis. Initially treated with antibiotics but CSF analysis consistent with viral meningitis. Please follow-up with Dr. Chávez on March 23 for that. You were noted to have urinary retention and dysuria. Please do double voiding and continue Flomax 0.4 mg daily.I have discussed with urologist and please follow-up with her in 1-2 weeks. You also have big gallbladder stone, please follow-up with Dr. Matthews for that . Follow-up Provider: [facility] Follow-up with PCP in: 1 week Provider: Carrie Gonzalez MD Follow-up in: 1 week Mid-level Provider (F9): Abimael Chávez MD Follow-up with Mid-level in: 1 week (March 23) Additional Information Follow-up with surgeon Dr Beti Matthews in 3 weeks . Chris Alfaro MD Mar 15, 2017 13:17
[2017-03-15] MEDS ORDERED: TAMS0.4C98 PO (13:19)
[2017-03-15] MEDS ORDERED: SENN-133 PO (13:19)
[2017-03-15] MEDS ORDERED: OXYC1TAB24 PO (13:19)
--- NOTE | 2017-03-15 13:29 | PCM.DC.MED ---
Discharge Summary Date of Service Mar 15, 2017 Dates of Hospitalization Date of Hospital Admission Mar 11, 2017 at 11:54 Date of Discharge: Mar 15, 2017 Providers: Admitting Physician: Gregorio Orta Primary Care Physician: Tor Tyler MD Attending Physician: Gregorio Orta Diagnosis at Time of Discharge Diagnosis at Time of Discharge # acute aseptic meningitis. Present on admission. Clinically seems to be improving # Acute dysuria urinary retention and hesitancy due to suspected BPH ,present on admission. # Incidental finding of a large gallstone without evidence of cholecystitis on blood work or exam # Acute hyponatremia, not present on admission. Consultations ID Dr. Chávez Surgery Dr. Matthews Urology Procedures XRay, CTs & MRIs Date of Service: 03/11/17 1833 PROCEDURE: MRI STROKE PROTOCOL ([id number]) Pre- and post-contrast brain MRI, non-contrast brain MR angiogram, pre- and postcontrast neck MR angiogram IMPRESSION: BRAIN MRI: 1. No evidence of infarct or other acute intracranial abnormality. BRAIN MR ANGIOGRAM: 1. No high-grade stenosis or occlusion of the central intracranial arteries. NECK MR ANGIOGRAM: 1. No high-grade stenosis or occlusion of the head and neck arteries. The carotid bulbs are widely patent. The estimate of stenosis included in the report of the imaging study was calculated using the NASCET method Dictated by: Chris Jiménez M.D. on 03/11/2017 at 23:22 Approved by: Chris Jiménez M.D. on 03/11/2017 at 23:22 Other Diagnostics Date of Service: 03/12/17 1324 PROCEDURE: X-RAY LUMBAR PUNCTURE ([id number]) IMPRESSION: Successful fluoroscopically guided lumbar puncture. Dictated by: Colin Conner M.D. on 03/12/2017 at 16:22 Approved by: Colin Conner M.D. on 03/12/2017 at 16:22 Brief History per HPI Patient is a 46 year old [place]ian speaking male originally from [place] generally healthy and without any known past medical history and on no medications who was admitted earlier directly to surgical service from urgent care with "description of fevers, rigors, and an impacted gallstone without any laboratory abnormalities." However, patient's chief complaint is a severe headache that has been ongoing for the past almost one week associated with chills, generalized malaise, and significant dysuria. He also reports occasional subjective fever, and 2 episodes of nausea and vomiting earlier in the week. He also had 2 episodes of severe acute abdominal pain which prompted the abdominal CT as outpatient which was notable for "chronically obstructed gallbladder containing a 3.8 x 4.8 impacted stone at the gallbladder neck" that lead to patient being admitted to surgery earlier today. However patient denies any ongoing abdominal pain and as noted his chief complaint is the headache, malaise and difficulty with initiating urination and then severe pain and burning when he does urinate. On further questioning he also endorses new onset of blurred vision as well as change in his sense of smell and taste over the past few days. He denies any photophobia but does complain of some neck pain. He otherwise denies any numbness, tingling, or focal weakness. He denies any recent travel (last travel to [place] was in July 2016) and denies any sick contacts. He is and denies any sexual encounters other than his . He further denies any drug use. 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 He also reports "dizziness" as well as lightheadedness even when laying down but has not lost consciousness. Hospital Course 46 year male originally from [place] generally healthy and without any known past medical history and on no medications who was admitted earlier directly to surgical service from urgent care with "description of fevers, rigors, and an impacted gallstone without any laboratory abnormalities." However, patient's chief complaint is a severe headache that has been ongoing for the past almost one week associated with chills, generalized malaise, and significant dysuria. # Acute severe headache due to acute aseptic meningitis. Present on admission. Clinically seems to be improving - Acute CVA/Stroke ruled out with brain MRI on 03/11/17 - Post lumbar puncture procedure on 03/12/17 by interventional radiology - CSF suggestive of aseptic meningitis. - viral PCR negative - Followup culture/gram stain negative so far - Treated with empiric Ceftriaxone + Vanco + IV Acyclovir (started on ). Discontinued upon discharge - ID consulted . Follow-up with Dr. Chávez on March 23 outpatient -Percocet for pain control # Acute urinary retention,dysuria and hesitancy present on admission. - UA is negative x2 . Urine culture no growth - ? if due to underlying constipation. Continue bowel regimen -Patient noted to have PVR in 500's and 600's which improves to 300's with double voiding. No hydronephrosis or bladder issue on prior CT. Discussed with urology, Started on Flomax 0.4 mg daily. Initially considered discharging with manzo but discharged on instruction to double void. Follow-up urology in 1 week. -Considered neurogenic bladder due to focal transverse myelitis given aseptic meningitis picture but unlikely given no back pain or any other neurologic deficits. Patient also has symptoms of dysuria and hesitancy which is consistent with prostatism than neuro -Continue bowel regimen # Incidental finding of a large gallstone without evidence of cholecystitis on blood work or exam - Further followup as outpatient per surgery team recommendation - Surgery signed off on 03/14 and recommends followup as outpatient after acute meningitis resolved. Follow-up in 1-2 weeks # Acute hyponatremia, not present on admission. - Improved with IVF. Dispo: Home Condition on discharge stable Follow-up with PCP, ID coma ,urology and surgery Exam Vital Signs (Last) Date Time Temp Pulse Resp B/P Pulse Ox O2 Delivery O2 Flow Rate FiO2 03/15/17 09:15 37.1 98 17 131/79 96 Room Air Exam General: Alert, Oriented x 3, Cooperative, No Acute Distress Head: Normal Eyes: PERRLA, EOMI, Scleral Anicteric Nose: Mucous Membr Moist/[place] Mouth: Mucous Membr Moist/[place] Neck: Supple with full ROM Chest & Lungs: Chest Wall Normal, Clear to auscultation bilat Cardiovascular: Regular Rate/Rhythm Pulses: NL DP, PT Abdomen: Tender (tender at lower abdomen), Non-distended, Normoactive bowel tones, Soft Musculoskeletal: Normal Range of Motion Extremities: No cyanosis/clubbing/edema bilat Neurological: Grossly Neurologically Intact, Normal Speech, Strength Normal / 4 ext Psych: Calm, appropriate Test 03/11/17 11:30 03/11/17 13:20 03/11/17 18:58 03/12/17 16:10 Hold Purple Top Tube Received (Received) Hold Blue Top Tube Received (Received) Hold Red Top Tube Received (Received) Hold [place] Top Tube Received (Received) Procalcitonin 0.05ng/mL (0.00-0.08) Prothrombin Time 11.3sec (8.1-12.5) Prothromb Time International Ratio 1.05ratio Activated Partial Thromboplast Time 24.4sec (22.8-33.0) CSF Appearance Clear (CLEAR) CSF Color Colorless (COLORLESS) CSF WBC 625/mm3 (0-5) CSF RBC 44/mm3 CSF Mononuclear WBCs 2% CSF Polynuclear WBCs 0% CSF Other Cells CSF Glucose 48mg/dL (45-90) CSF Total Protein 119mg/dL (15-45) Test 03/14/17 05:35 03/14/17 13:30 03/14/17 17:31 03/15/17 05:45 Monoscreen Negative (Negative) Vancomycin Level Trough 15.8mcg/mL Rapid Plasma Reagin Non reactive (Non Reactive) Cryptococcus Antigen Negative (Negative) HIV (1&2) Ag and Ab, 4th Generation Non reactive (Non Reactive) White Blood Count 7.6th/mm3 (3.8-10.1) Red Blood Count 4.90mil/mm3 (4.40-5.80) Hemoglobin 15.0g/dL (13.8-17.2) Hematocrit 42.5% (41.0-50.0) Mean Corpuscular Volume 86.7fL (81-100) Mean Corpuscular Hemoglobin 30.6pg (27.0-35.0) Mean Corpuscular Hemoglobin Concent 35.3% (32.0-37.0) Red Cell Distribution Width 12.5% (12.3-15.4) Platelet Count 282bil/L (150-400) Neutrophils (%) (Auto) 63.3% (40-74) Lymphocytes (%) (Auto) 24.0% (14-46) Monocytes (%) (Auto) 9.2% (4-12) Eosinophils (%) (Auto) 3.0% (0-5) Basophils (%) (Auto) 0.4% (0-3) Sodium Level 133mEq/L (134-144) Potassium Level 4.5mEq/L (3.5-5.2) Chloride Level 96mEq/L (97-108) Carbon Dioxide Level 24mmol/L (18-29) Blood Urea Nitrogen 11mg/dL (6-24) Creatinine 0.77mg/dL (0.76-1.27) Estimat Glomerular Filtration Rate 116mL/min (>59) Glucose Level 110mg/dL (60-99) Calcium Level 8.9mg/dL (8.5-10.1) Total Bilirubin 0.4mg/dL (0.0-1.2) Aspartate Amino Transf (AST/SGOT) 11U/L (0-50) Alanine Aminotransferase (ALT/SGPT) 14U/L (0-44) Alkaline Phosphatase 38U/L (25-150) Total Protein 7.2g/dL (6.4-8.4) Albumin 4.6g/dL (3.4-5.0) Test 03/15/17 11:04 Urine Color Yellow (YELLOW) Urine Appearance Clear (CLEAR,HAZY) Urine pH 7.0 (5.0-8.0) Urine Specific [place] 1.010 (1.003-1.035) Urine Protein Negativemg/dL (NEG,TRACE) Urine Glucose (UA) Negativemg/dL (NEGATIVE) Urine Ketones Negativemg/dL (NEGATIVE) Urine Occult Blood Negative (NEGATIVE) Urine Nitrite Negative (NEGATIVE) Urine Bilirubin Negative (NEGATIVE) Urine Urobilinogen 1.0mg/dL (NORMAL) Urine Leukocyte Esterase Negative (NEGATIVE) Urine RBC 0-2/hpf (0-2) Urine WBC 0-5/hpf (0-5) Urine Epithelial Cells Occasional/hpf (NONE-MOD) Urine Crystals None seen (NONE SEEN) Urine Bacteria None/hpf (NONE-FEW) Urine Hyaline Casts None/lpf (NONE) Urine Granular Casts None seen (NONE SEEN) Urine Waxy Casts None seen (NONE SEEN) Urine Red Blood Cell Casts None seen (NONE SEEN) Urine White Blood Cell Casts None seen (NONE SEEN) Urine Mucus Present (None Seen) Urine Trichomonas None seen (NONE SEEN) Urine Yeast None (NONE SEEN) Urinalysis Comment None Urine Culture Reflexed Not indicated Microbiology Results Microbiology JIMENA GS (GRAM STAIN) Final 03/13/17 GRAM STAIN RESULT MANY CELLS NOT POLY MORPHONUCLEAR NO ORGANISMS SEEN JIMENA CULT AEROBIC Preliminary 03/15/17 NO GROWTH AFTER 48 HOURS Held for further observation ESCHERICHIA COLI K1 PCR Final 03/13/17 Not Detected HAEMOPHILLUS INFLUENZAE PCR Final 03/13/17-709 Not Detected LISTERIA MONOCYTOGENES PCR Final 03/13/17-709 Not Detected NEISSERIA MENINGITIS PCR Final 03/13/17-709 Not Detected STREPTOCOCCUS AGALACTIAE PCR Final 03/13/17-709 Not Detected STREPTOCOCCUS PEUMONIAE PCR Final 03/13/17-709 Not Detected CYTOMEGALOVIRUS PCR Final 03/13/17-709 Not Detected ENTEROVIRUS PCR Final 03/13/17-709 Not Detected HUMAN HERPESVIRUS HHV6 PCR Final 03/13/17-709 Not Detected HERPES SIMPLEX VIRUS 1 PCR Final 03/13/17-709 Not Detected CONTINUED ON NEXT PAGE RUN DATE: 03/15/17 [facility] LIVE PAGE 2 RUN TIME: 747 Specimen Inquiry PHYSICIAN Patient: REJI BEYER [id number] (Continued) Specimen: [id number] Collected: 03/12/17-1323 Received: 03/12/17-1714 (Continued) Procedure Result Verified Site HERPES SIMPLEX VIRUS 2 PCR Final 03/13/17 Not Detected Microbiology (Continued) HUMAN PARECHOVIRUS PCR Final 03/13/17 Not Detected VARICELLA-ZOSTER PCR Final 03/13/17 Not Detected CRYPTOCOCCUS NEOFORM/SNOW PCR Final 03/13/17 CRYPTO NEOFORM/SNOW PCR Not Detected Discharge Medications Discharge Medications Tamsulosin (Flomax) 0.4 Mg Capsule 0.4 MG PO DAILY Prescribed by: TIFFANIE LANE MD As needed Acetaminophen (Acetaminophen) 325 Mg Capsule 650 MG PO Q4H PRN PRN For Pain ( Reported) Ibuprofen (Advil) 200 Mg Capsule 200-400 MG PO QID PRN PRN For Pain (Reported) Sennosides (Senna) 8.6 Mg Tablet 8.6 MG PO BID PRN PRN For Constipation Prescribed by: TIFFANIE LANE MD oxyCODONE-Acetaminophen 5-325 mg (oxyCODONE-Acetaminophen 5-325 mg) 1 Each Tablet 1 TAB PO Q6H PRN PRN For Pain Prescribed by: TIFFANIE LANE MD Followup Plan Disposition: Home Discharge Diet: Low fat, Low Sodium Discharge Activity: Limited until seen by PCP Patient Instructions You were hospitalized due to meningitis. Initially treated with antibiotics but CSF analysis consistent with viral meningitis. Please follow-up with Dr. Chávez on March 23 for that. You were noted to have urinary retention and dysuria. Please do double voiding and continue Flomax 0.4 mg daily.I have discussed with urologist and please follow-up with her in 1-2 weeks. You also have big gallbladder stone, please follow-up with Dr. Matthews for that . Follow-up Provider: [facility] Follow-up with PCP in: 1 week Provider: Carrie Gonzalez MD Follow-up in: 1 week Mid-level Provider: Abimael Chávez MD Follow-up with Mid-level in: 1 week (March 23) Time spent 40 minutes coordinating discharge copies to: Carrie Gonzalez MD; Beti Matthews MD; [facility]; Abimael Chávez MD, Melaku MD Mar 15, 2017 13:29
[2017-03-15] MEDS ORDERED: Vancomycin Serum Trough XX ONE (13:30)
--- NOTE | 2017-03-15 13:56 | NUR ---
Social Work- Discharge Data: EMR reviewed. Pt is on day 4 of hospitalization. Pt discussed in multidisciplinary rounds. No SW needs identified. Discharge orders are active. Pt to d/c home via POV. No d/c needs. Assessment: Pt who is independent at baseline Plan: Pt to d/c home via POV. No d/c needs. Hali Mancia MSW
[2017-03-15 15:42] VITALS: BP 132/76; PULSE 86; RESP 18; O2SAT 97
--- NOTE | 2017-03-15 18:21 | NUR ---
Discharge note- Medicated for complaint of sinus pain with good relief. Patient denies other discomfort. Bladder scanned per order after patient voided. 517mls residual per scanner. Instructed patient to "double void" later and bladder scanned and showed 320mls residual. Dr Aguillon notified. Patient discharged to home with and personal belongings. Discharge instructions and follow up info given in [place] per healthcare interpreter
== END 2017-03-15 16:41 | disposition home or self-care (01) | DRG 98 ==
LOC: OBSVTOIN 11:54 → OSC 11:54 → INTOOBSV 11:54
PROVIDERS: ADMIT Internal Medicine; ATTEND Student in an Organized Health Care Education/Training Program
PROC: 009U3ZX Drainage of Spinal Canal, Percutaneous Approach, Diagnostic (ICD-10-PCS; principal; 2017-03-12)
PROC: B01BZZZ Fluoroscopy of Spinal Cord (ICD-10-PCS; 2017-03-12)
DX: G03.0 Nonpyogenic meningitis (principal); E87.1 Hypo-osmolality and hyponatremia; N40.1 Benign prostatic hyperplasia with lower urinary tract symptoms; R33.8 Other retention of urine; R39.11 Hesitancy of micturition; K80.20 Calculus of gallbladder without cholecystitis without obstruction